=== PATIENT | female | born 1975 | race Caucasian/White ===

== ENCOUNTER 2023-02-06 09:42 | Outpatient (CLI) | payer BC, SELFPAY | END 2023-02-06 09:43 | disposition home or self-care (01) | LOC: WOUND 09:46 | PROVIDERS: PCP Family Medicine; Visit Provider Nurse Practitioner Family | DX: E11.622 Type 2 diabetes mellitus with other skin ulcer (principal); L02.211 Cutaneous abscess of abdominal wall; L73.2 Hidradenitis suppurativa; D64.9 Anemia, unspecified; E66.01 Morbid (severe) obesity due to excess calories; Z68.41 Body mass index [BMI] 40.0-44.9, adult; Z79.4 Long term (current) use of insulin | CPT/HCPCS: 97597; 99202 ==

== ENCOUNTER 2023-02-12 08:16 | Outpatient (CLI) | payer BC, SELFPAY | END 2023-02-12 08:17 | disposition home or self-care (01) | PROVIDERS: PCP Family Medicine; Visit Provider Nurse Practitioner Family | DX: L73.2 Hidradenitis suppurativa (principal); E11.622 Type 2 diabetes mellitus with other skin ulcer; L02.211 Cutaneous abscess of abdominal wall; Z79.4 Long term (current) use of insulin | CPT/HCPCS: 87070; 87186; 97597; 97598 ==

== ENCOUNTER 2023-02-27 09:37 | Outpatient (CLI) | payer BC, SELFPAY | END 2023-02-27 09:38 | disposition home or self-care (01) | LOC: WOUND 09:37 | PROVIDERS: PCP Family Medicine; Visit Provider Nurse Practitioner Family | DX: L73.2 Hidradenitis suppurativa (principal); E11.622 Type 2 diabetes mellitus with other skin ulcer; L02.211 Cutaneous abscess of abdominal wall; Z79.4 Long term (current) use of insulin | CPT/HCPCS: 11042; 11045 ==

== ENCOUNTER 2023-03-06 09:44 | Outpatient (CLI) | payer BC, SELFPAY | END 2023-03-06 09:45 | disposition home or self-care (01) | LOC: WOUND 09:44 | PROVIDERS: PCP Family Medicine; Visit Provider Nurse Practitioner Family | DX: E11.622 Type 2 diabetes mellitus with other skin ulcer (principal); L02.211 Cutaneous abscess of abdominal wall; S31.104A Unspecified open wound of abdominal wall, left lower quadrant without penetration into peritoneal cavity, initial encounter; L73.2 Hidradenitis suppurativa; Z79.4 Long term (current) use of insulin | CPT/HCPCS: 11042; 87070; 97597 ==

== ENCOUNTER 2023-03-09 14:30 | Outpatient (CLI) | payer BC, SELFPAY ==
--- NOTE | 2023-03-09 15:00 | CRLHL7_ITS ---
For Patients: As a result of the Cures Act, medical imaging exams and procedure reports are released immediately into your electronic medical record. You may view this report before your referring provider. If you have questions, please contact your health care provider. Indication: Evaluate for abscess/fluid collection Technique: Ultrasound extremity left Comparison: None Findings: Patient was scanned in the region of the left hip. No definitive walled-off fluid collections consistent with abscess or hematoma. No significant free fluid. No masses. Impression: No gross abnormalities including no evidence for free fluid or abscess. Dictated by Jerrell Thompson MD @ 03/09/2023 3:50:07 PM (Electronically Signed)
== END 2023-03-09 14:31 | disposition home or self-care (01) ==
PROVIDERS: PCP Physician Assistant Medical; Visit Provider Nurse Practitioner Family
DX: R10.32 Left lower quadrant pain (principal)
CPT/HCPCS: 76882

== ENCOUNTER 2023-03-13 09:17 | Outpatient (CLI) | payer BC, SELFPAY | END 2023-03-13 09:18 | disposition home or self-care (01) | LOC: WOUND 09:17 | PROVIDERS: PCP Physician Assistant Medical; Visit Provider Nurse Practitioner Family | DX: E11.622 Type 2 diabetes mellitus with other skin ulcer (principal); L98.492 Non-pressure chronic ulcer of skin of other sites with fat layer exposed; L02.211 Cutaneous abscess of abdominal wall; L73.2 Hidradenitis suppurativa; Z79.4 Long term (current) use of insulin | CPT/HCPCS: 11042; 97597 ==

== ENCOUNTER 2023-03-19 13:47 | Outpatient (CLI) | payer BC, SELFPAY | END 2023-03-19 13:48 | disposition home or self-care (01) | LOC: WOUND 13:47 | PROVIDERS: PCP Family Medicine; Visit Provider Nurse Practitioner Family | DX: L73.2 Hidradenitis suppurativa (principal); L02.211 Cutaneous abscess of abdominal wall | CPT/HCPCS: 97597 ==

== ENCOUNTER 2023-04-10 09:06 | Outpatient (CLI) | payer BC, SELFPAY | END 2023-04-10 09:07 | disposition home or self-care (01) | PROVIDERS: PCP Family Medicine; Visit Provider Nurse Practitioner Family | DX: L73.2 Hidradenitis suppurativa (principal); E11.622 Type 2 diabetes mellitus with other skin ulcer; L02.211 Cutaneous abscess of abdominal wall; Z79.4 Long term (current) use of insulin | CPT/HCPCS: 99213 ==